=== PATIENT | male | born 1965 | race African-American/Black ===

== ENCOUNTER 2024-12-15 08:40 | Emergency (ER) | payer BC ==
[~2024-12-15] VITALS: Ht 180.3 cm; Wt 91.6 kg
[2024-12-15] MEDS ORDERED: ACETAMINOPHEN 500 MG GEL..CAP PO STA (09:26)
[2024-12-15 10:18] LABS: BASO % 0.8 % (0.1-1.2); EOS # 0.05 (0.04-0.54); EOS % 1.0 % (0.7-7.0); LYMPH # 1.44 (1.18-3.74); LYMPH % 29.2 % (19.3-53.1); MEAN PLATELET VOLUME 9.70 fl (9.4-12.4); MONO # 0.33 (0.24-0.82); MONO % 6.7 % (4.7-12.5); NEUT # 3.07 (1.56-6.13); NEUT % 62.3 % (34.0-71.1); RED CELL DISTRIBUTION WIDTH 13.2 % (11.6-14.4)
[2024-12-15 10:51] LABS: BUN CREA RATIO 13.0 (7.0-25.0); CREATININE SERUM 1.05 mg/dL (0.70-1.30); GFR 72.8; GLUCOSE FASTING 96.0 mg/dL (65-100); OSMOLALITY SERUM 283.0 MOSM/KG (275-295); TSH 1.2 uIU/mL (0.358-3.74)
[2024-12-15] MEDS ORDERED: ATARAX25 MG PO (11:12)
[2024-12-15 11:46] VITALS: BP 130/80; O2SAT 99
== END 2024-12-15 11:47 | disposition home or self-care (01) ==
LOC: ER 09:06
PROVIDERS: General Practice
DX: R42 Dizziness and giddiness (principal); R06.02 Shortness of breath; F41.9 Anxiety disorder, unspecified